=== PATIENT | male | born 1980 | race African-American/Black ===

== ENCOUNTER 2021-08-16 17:32 | Inpatient (IN) | payer OTHER, SELFPAY ==
[2021-08-16] VITALS (53 sets, daily range): BP systolic 48–119; BP diastolic 23–47; PULSE 66–81; RESP 14–31; TEMP 36.1–36.4; O2SAT 95–100; BMI 31.4
--- NOTE | ~2021-08-16 | CT_ITS ---
EXAMINATION: CT brain wo con DATE: 08/16/2021 23:07 INDICATION: Unresponsive TECHNIQUE: Computed tomography (CT) of the head was performed without intravenous contrast. Sagittal and coronal reconstructions were performed. The mA was adjusted according to patient size. Iterative reconstruction technique was employed. The dose-length product was 605.33 mGy-cm. COMPARISON: None FINDINGS: Evaluation mildly limited by some motion and streak artifact at the level of the skull base. Large le ft frontal temporal parietal craniotomy with plate and screw fixation. 3.4 x 3.5 x 3.4 similar partia lly calcified mass position at the left cerebral pontine angle exerts mass effect upon the anterior m argin of the left cerebellar hemisphere and left posterior margin of the inferior pontomedullary junc tion. No acute intracranial hemorrhage, acute infarction or abnormal extra axial fluid collection. Ve ntricles are normal and symmetric. Dependently layering fluid in the bilateral sphenoid sinuses and m ucosal thickening in a few of the bilateral ethmoid air cells. Bilateral otomastoiditis effusions. Th e orbits are normal. IMPRESSION: 1. No acute intracranial process. 2. 3.5 cm calcified mass at the left cerebral pontine angle suspicious for a meningioma. Patient has a prior large left frontal parietal temporal craniotomy suggesting patient likely has extensive prior imaging and would recommend correlation with prior imaging and surgical history. If noncontributory would recommend pre and postcontrast MRI for further evaluation. 3. Bilateral otomastoiditis effusions. 4. Dependently layering fluid in the bilateral sphenoid sinuses. Correlate clinically for acute sinus itis. Reviewed, dictated and finalized at location A. IMPRESSION: 1. No acute intracranial process. 2. 3.5 cm calcified mass at the left cerebral pontine angle suspicious for a me ningioma. Patient has a prior large left frontal parietal temporal craniotomy s uggesting patient likely has extensive prior imaging and would recommend correl ation with prior imaging and surgical history. If noncontributory would recomme nd pre and postcontrast MRI for further evaluation. 3. Bilateral otomastoiditis effusions. 4. Dependently layering fluid in the bilateral sphenoid sinuses. Correlate clin ically for acute sinusitis.
--- NOTE | ~2021-08-16 | CT_ITS ---
EXAMINATION: CT abdomen pelvis wo con DATE: 08/16/2021 23:06 INDICATION: Unresponsive. Sepsis. TECHNIQUE: Computed tomography (CT) of the abdomen and pelvis was performed without intravenous contr ast. Automated exposure control and iterative reconstruction technique were employed. The dose-length product was 1353.50 mGy-cm. COMPARISON: None FINDINGS: Dependent consolidation and patchy airspace opacities in the bilateral lower lobes which could repres ent aspiration or pneumonia. Heart size is normal. No pericardial or pleural effusion. Nasogastric tu be tip in proximal side port in the body of the stomach. Shrunken nodular cirrhotic liver. Gallbladde r is dilated to 4.7 cm in diameter at the fundus. Extensive dystrophic calcifications throughout the pancreas consistent with sequela of chronic pancreatitis. Normal spleen, bilateral adrenal glands and kidneys. There are large left splenorenal collaterals likely related to portal venous hypertension. There is edematous-appearing wall thickening throughout the colon consistent with pancolitis. Numerou s gas and fluid-filled mildly dilated loops of small bowel throughout the abdomen and pelvis without a clearly defined transition point to suggest obstruction. There does appear to be some wall thickeni ng in the distal ileum. Normal appendix. Moderate amount of ascites throughout the abdomen and pelvis . No free intraperitoneal gas. Bladder is decompressed around a Vega catheter. Chronic appearing mil d anterior wedging at T11 and T12. Large Schmorl's node along the superior endplate of L5. Diffuse reji dy wall edema. Embolization coils near the head of the pancreas extending towards the antrum of the s tomach. Right common femoral central venous catheter with distal tip at the proximal right common anthony ac vein. 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 IMPRESSION: 1. Consolidation and patchy airspace opacities in the dependent lower lobes which could represent asp iration and/or pneumonia. 2. Cirrhosis with prominent splenorenal collaterals consistent with portal venous hypertension. 3. Diffuse wall thickening throughout the colon and in the distal ileum consistent with pancolitis an d terminal ileitis which could be infectious, inflammatory or ischemic in etiology or potentially hep atic colopathy. 4. Multiple mildly dilated loops of small bowel throughout the abdomen and pelvis without discrete tr ansition point which could represent either an ileus or bowel obstruction at an indeterminate locatio n. 5. Extensive body wall edema and moderate amount of ascites likely related to liver disease. 6. Distended gallbladder without evident wall thickening which may be due to fasted state. There is c linical concern for acute cholecystitis could consider either ultrasound or HIDA scan. 7. 5.6 x 3.1 cm likely lipoma situated between the right gluteus medius and minimus muscle bellies. 8. Extensive dystrophic calcific lesions throughout the pancreas likely sequela of chronic pancreatit is. Reviewed, dictated and finalized at location A. IMPRESSION: 1. Consolidation and patchy airspace opacities in the dependent lower lobes whi ch could represent aspiration and/or pneumonia. 2. Cirrhosis with prominent splenorenal collaterals consistent with portal veno us hypertension. 3. Diffuse wall thickening throughout the colon and in the distal ileum consist ent with pancolitis and terminal ileitis which could be infectious, inflammator y or ischemic in etiology or potentially hepatic colopathy. 4. Multiple mildly dilated loops of small bowel throughout the abdomen and pelv is
--- NOTE | ~2021-08-16 | XR_ITS ---
EXAMINATION: XR chest 1V portable, XR abdomen NG/feed tube insert DATE: 08/16/2021 18:16 INDICATION: Status post cardiac arrest TECHNIQUE: 1. frontal view of the chest was obtained. 2. Single AP view of the abdomen was obtained. COMPARISON: None FINDINGS: Chest: Endotracheal tube tip 2.2 cm above the quang. Small lung volumes. Linear band of discoid atelectasis /scarring extending obliquely across the left midlung zone. No other airspace opacities, pulmonary ed livia, pleural effusion or pneumothorax. The cardiomediastinal silhouette is normal. Distal tip in proximal side port of a nasogastric tube project over the body of the stomach. There is prominent gaseous distention of the stomach. Multiple dystrophic calcifications extending across the central aspect of the upper abdomen likely throughout the pancreas related to chronic pancreatitis. Embolization coils in the right upper quadrant. There are some gas within a few loops of large and sm all bowel in the visualized lower abdomen. IMPRESSION: 1. Endotracheal tube and nasogastric tube in expected positions. 2. Small lung volumes with linear discoid atelectasis/scarring in the left midlung zone. 3. Dominant gaseous distention of the stomach which may be related to prior bag mask ventilation. Thi s may also account for the in increasing gas seen within nondilated loops of small bowel in the lower abdomen. 4. Numerous dystrophic pancreatic calcifications likely sequela of chronic pancreatitis. Reviewed, dictated and finalized at location A. IMPRESSION: 1. Endotracheal tube and nasogastric tube in expected positions. 2. Small lung volumes with linear discoid atelectasis/scarring in the left midl mt zone. 3. Dominant gaseous distention of the stomach which may be related to prior bag mask ventilation. This may also account for the in increasing gas seen within nondilated loops of small bowel in the lower abdomen. 4. Numerous dystrophic pancreatic calcifications likely sequela of chronic panc reatitis. IMPRESSION: 1. Endotracheal tube and nasogastric tube in expected positions. 2. Small lung volumes with linear discoid atelectasis/scarring in the left midl tm zone. 3. Dominant gaseous distention of the stomach which may be related to prior bag mask ventilation. This may also account for the in increasing gas seen within nondilated loops of small bowel in the lower abdomen. 4. Numerous dystrophic pancreatic calcifications likely sequela of chronic panc reatitis.
--- NOTE | 2021-08-16 17:47 | ECG_ITS ---
Measurements Intervals [place] Rate: 67 P: 75 TN: 118 QRS: 45 QRSD: 88 T: 64 QT: 500 QTc: 529 Interpretive Statements SINUS RHYTHM WITH SHORT TN INTERVAL PROLONGED QT INTERVAL, CONSIDER MEDICATION EFFECT NO PREVIOUS ECG AVAILABLE FOR COMPARISON Electronically Signed On 08-17-2021 13:37:55 CDT by Hanane Gurrola M.D.
[2021-08-16 17:48] LABS: Glucose Point of Care < 20 mg/dl (65-105)
[2021-08-16] MEDS: DEXTROSE 50% 25 GM/50 ML SYRINGE IV PUSH ×2 (17:49)
--- NOTE | 2021-08-16 17:49 | PC.NURSE ---
Pt bedside blood glucose 12. 2 amps d50 given per verbal order.
--- NOTE | 2021-08-16 18:00 | PC.NURSE ---
EDP to bedside to remove LMA and intubate pt with ET tube. RT at bedside. LMA removed and large amount of blood suctioned from airway. Pt intubated with 7.5mm ET tube, 25cm to the lips and secured per protocol. Bilateral breath sounds auscultated and positive color changed noted on C02 detector. OG placed per verbal order 60cm to the lip and large amount of blood suctions from stomach.
[2021-08-16 18:09] LABS: Basophils Percent Auto 0.5 % (0.2-1.2); Eosinophils Percent Auto 0.7 % (0-4.4); Immature Granulocyte Percent A 3.4 % (0-0.5); Immature Platelet Fraction Pct 8.9 % (0.9-11.2); Lymphocytes Absolute Auto 2.05 K/mm3 (0.9-3.2); Lymphocytes Percent Auto 34.5 % (18.3-44.2); Mean Corpuscular HGB Conc 33.2 g/dl (32-36); Mean Corpuscular Hemoglobin 33.7 pg (26-34); Mean Corpuscular Volume 101.5 fl (80-100); Monocytes Absolute Auto 0.6 K/mm3 (0.1-0.6); Monocytes Percent Auto 9.9 % (2.6-8.5); Nucleated Red Blood Cells Absolute Auto 0.1 K/mm3 (0.0-0.012); Nucleated Red Blood Cells Perc 1.5 % (0.0-0.2); Red Blood Count 1.99 M/mm3 (4.6-6.20); Red Cell Distribution Width 25.3 % (11.5-14.5); White Blood Count 5.9 K/mm3 (4.5-10.0)
[2021-08-16 18:17] LABS: Partial Thromboplastin Time 100.2 SECONDS (22.3-36.8)
--- NOTE | 2021-08-16 18:21 | ED.CPR ---
HPI - CPR General Chief Complaint: Cardiac Arrest/CPR Stated Complaint: post cardiac arrest Source: family and EMS Mode of arrival: EMS Limitations: clinical condition History of Present Illness HPI narrative: Patient is 40 years old -[place] male came from custodial by ambulance because of cardiopulmonary arrest. History of HIV, liver cirrhosis secondary to alcoholism, end-stage liver disease, comfort measures only, hospice. Patient was discharged from [facility] today to go back to custodial for hospice. All his medication was stopped few days ago, no blood work-up done on him for a while, once patient arrived to the custodial, coded, requested to do everything and cancel the comfort measures only status. Dr. Huang, [facility] who discharge patient to custodial, telling me that the and the mother were on board yesterday for the patient to be comfort measures/hospice. And all his medication was stopped few days ago, and no blood work-up done on him for a while. Patient was admitted to [facility] for hematemesis secondary to esophageal varices, liver cirrhosis. EMT arrived to the custodial at 5 PM, VMarcus fib, shocked 1, epinephrine x3, currently patient sinus tachycardia. IO left tibia, Course Course Emergency Course: Patient's mother and sister who are at the bedside would like to continue patient's CODE STATUS of comfort measures only and hospice. And he was not happy about intubation and medical intervention. I did phone patient's 3 times, ( did not come to see her ) who insisted to do everything and to not let him suddenly and to donate his body to [facility] . She requested to treat any medical condition and to do any invasive procedure to keep him alive Consultations Consultation #1: DR HUANG, [facility] Patient was intubated on August 08 to protect airway because of hematemesis, was extubated on August 13 because of CODE STATUS changed to comfort measures only/hospice. Patient did not receive any of his medication since August 13. Patient was discharged to custodial for hospice today. The family including the mother and are on board and aware of the comfort measures only, hospice status. Date: 08/16/21 Time: 18:34 Consultation #2: DR HORTON, ICU at [facility] Report that patient was under conservative measures only while was at [facility], and is not a liver transplant candidate, and was placed on comfort measures only and the hospice because nothing else could be done for him. He declined to take patient back to [place] ICU because they would not offer anything more than conservative measures which can be done in our ICU at [facility] Date: 08/16/21 Time: 22:09 Consultation #3: Dr. Prado, accepted patient admission to ICU Dr. Breaux, inspector and sorter asked patient consult for alcoholic liver cirrhosis and possible esophageal varices Dr. HILL, our hospitalist who accepted patient admission. Date: 08/16/21 Time: 22:10 Vital Signs Vital signs: Vital Signs Pulse Rate 66 08/16/21 17:33 Respiratory Rate 20 08/16/21 17:33 Blood Pressure 96/41 L 08/16/21 17:33 Pulse Oximetry 98 08/16/21 17:33 Pulse Rate 66 08/16/21 17:33 Respiratory Rate 20 08/16/21 17:33 Blood Pressure 96/41 L 08/16/21 17:33 Pulse Oximetry 98 08/16/21 17:33 Procedures Central Line Placement Right Femoral: Performed Emergently - Given emergent patient condition, temporal constraints may have precluded informed consent.: Yes Time Out Performed: Yes (30) Patient Placed on Monitor/Pulse Ox: Yes Max. Sterile Barrier Technique: Caps, large sterile sheet and hand hygiene Central Line Prep: 2% chlorhexidine scrub and sterile drapes applied Technique: sterile prep/drape Local Anesthetic: none Ultrasound Used for Placement: No Central Line Lumen Inserted: triple Post Procedure: sutu
[2021-08-16 18:27] LABS: Alanine Aminotransferase 41 U/L (4-50); Albumin Level 2.8 g/dL (3.5-5.1); Alkaline Phosphatase 99 U/L (38-126); Anion Gap 18 mmol/L (8-16); Aspartate Amino Transferase 150 U/L (17-59); Bilirubin,Total 38.2 mg/dL (0.2-1.3); Blood Urea Nitrogen 51 mg/dL (9-20); Calcium 7.2 mg/dL (8.4-10.2); Carbon Dioxide 12 mmol/L (22-30); Chloride 112 mmol/L (98-107); Estimated CRCL calculation 19 ml/min; Estimated Glomerular Filt Rate 14; Glucose < 30 mg/dL (65-110); Potassium 5.4 mmol/L (3.4-5.0); Sodium 142 mmol/L (137-145)
[2021-08-16 18:30] LABS: Hemoglobin 6.7 g/dL (14.0-18.0)
[2021-08-16 18:31] LABS: Hematocrit 20.2 % (42.0-52.0); Platelet Count Result 18 k/mm3 (150-375)
[2021-08-16 18:35] LABS: Burr Cells 1+ (NORMAL); Ovalocytes 1+ (NORMAL); Platelet Estimate Decreased (Adequate); Troponin I 0.067 ng/mL (0.000-0.034)
[2021-08-16 18:36] LABS: Schistocytes 1+ (NORMAL)
[2021-08-16 18:39] LABS: Glucose Point of Care 169 mg/dl (65-105)
[2021-08-16 18:39] LABS: Glucose Point of Care 135 mg/dl (65-105)
[2021-08-16 18:45] LABS: Alveolar/Arterial O2 Gradient 506.7 mmHg; Base Excess ABG -19.9 mEq/l (+/-2.0); Carboxyhemoglobin 2.3 % THb (0-2.0); Fractional Inspired Oxygen 100 %; HCO3 ABG 6.5 mEq/l (22.0-26.0); Methemoglobin ABG 1.5 %THb (0-1.5); Oxygen Content ABG 4.8 %vol (16.0-22.0); Oxyhemoglobin 93.7 % THb (90.0-100.0); PO2 FiO2 Ratio Arterial Blood 1.89 %; Reduced Hemoglobin 2.5 %THb (0-5.0)
--- NOTE | 2021-08-16 18:45 | PC.NURSE ---
2nd liter NS started
[2021-08-16 18:46] LABS: pH ABG 7.192 (7.350-7.450)
[2021-08-16 18:47] LABS: Arterial Blood Gas Vent Mode CMV; Arterial Blood Gas Ventilator rate 20 /MIN; Device VENTILATOR; Modified Allen's Test Pass; PCO2 ABG 17.3 mmHg (35.0-45.0); Site Drawn LEFT RADIAL; Total Hemoglobin 3.2 g/dL (12.0-18.0)
[2021-08-16 18:48] LABS: Arterial Blood Gas PEEP 5 cmH2O; Arterial Blood Gas Tidal Volume 450 ml
[2021-08-16 18:55] LABS: CRP 3.9 mg/dL (<1.0); Lactic Acid Reflex 8.1 mmol/L (0.7-2.0)
[2021-08-16 19:00] LABS: Prothrombin Time 57.5 Seconds (11.1-14.7)
--- NOTE | 2021-08-16 19:00 | PC.NURSE ---
Right groin central line placed by Dr. Nguyen.
[2021-08-16 19:09] LABS: INR 6.9
--- NOTE | 2021-08-16 19:16 | PC.NURSE ---
2nd liter of NS infused. 3rd Liter of NS started.
[2021-08-16] MEDS: NOREPINEPHRINE 8 MG/D5W 250 ML 8 MG/250 ML BAG 9.38 MG IV CONT (19:36)
--- NOTE | 2021-08-16 19:45 | PC.NURSE ---
Pt requiring frequent suction due to blood in mouth and nose. Pt also had large dark liquid stool. Pt cleaned up and open pressure injury noted on coccyx. ABD pad placed.
[2021-08-16] MEDS: TUBING, BLOOD PLUM PUMP TUBING 2 EACH XX (19:49)
[2021-08-16] MEDS: PHYTONADIONE ADULT INJ 10 MG in DEXTROSE 5% IN WATER 50 ML 100 MG IVPB (21:00)
[2021-08-16 21:10] LABS: Alveolar/Arterial O2 Gradient 410.5 mmHg; Base Excess ABG -16.3 mEq/l (+/-2.0); Fractional Inspired Oxygen 90 %; HCO3 ABG 8.4 mEq/l (22.0-26.0); Oxygen Content ABG 11.3 %vol (16.0-22.0); Oxygen Saturation ABG 99.4 % (95.0-100.0); Oxyhemoglobin 96.6 % THb (90.0-100.0); PO2 ABG 213.1 mmHg (80.0-100.0); PO2 FiO2 Ratio Arterial Blood 2.37 %
[2021-08-16 21:13] LABS: pH ABG 7.296 (7.350-7.450)
[2021-08-16 21:14] LABS: PCO2 ABG 17.7 mmHg (35.0-45.0)
[2021-08-16 21:16] LABS: Device VENTILATOR; Modified Allen's Test Unable to perform; Site Drawn LEFT RADIAL; Total Hemoglobin 7.9 g/dL (12.0-18.0)
[2021-08-16 21:17] LABS: Arterial Blood Gas PEEP 5 cmH2O; Arterial Blood Gas Tidal Volume 450 ml; Arterial Blood Gas Vent Mode CMV; Arterial Blood Gas Ventilator rate 20 /MIN
[2021-08-16 21:32] LABS: Glucose Point of Care 102 mg/dl (65-105)
[2021-08-16 21:41] LABS: Reflex Lactic Acid Yes or No Add Lactic
--- NOTE | 2021-08-16 23:05 | ADMGEN ---
This patient, Elpidio Evangelista, was admitted to Intensive Care Unit-5. Patient/family oriented to hospital policies and general routines including ID bracelet, bed and alarms, visiting hours, pain management, procedures, bathroom and other care routines, personal items, smoking policy, room service/diet, and visiting hours. Information on how to activate the Rapid Response Team has been discussed. Patient/Family are encouraged to report perceived risks to care and to ask questions if they do not understand what they are told or what they should do.
--- NOTE | 2021-08-16 23:20 | PC.NURSE ---
Unable to detect blood presser. Levophed increased. Palpable pulse.
[2021-08-16] MEDS: SODIUM BICARBONATE 8.4% 50 MEQ/50 ML SYRINGE 100 MEQ IV PUSH (23:42)
[2021-08-16 23:48] LABS: Hematocrit 23.2 % (42.0-52.0); Hemoglobin 7.7 g/dL (14.0-18.0)
[2021-08-16] MEDS: VASOPRESSIN INJ 100 UNITS in DEXTROSE 5% 95 ML IV CONT (23:52)
[2021-08-16] MEDS: MIDAZOLAM 100MG/NS 100ML(*CRX) 100 MG/100 ML BAG IV CONT (23:55)
[2021-08-16 23:59] LABS: Prothrombin Time 56.9 Seconds (11.1-14.7)
[2021-08-17] VITALS (58 sets, daily range): BP systolic 62–133; BP diastolic 32–97; PULSE 78–90; RESP 20–29; TEMP 32.7–33.4; O2SAT 86–98
[2021-08-17 00:01] LABS: Partial Thromboplastin Time 96.7 SECONDS (22.3-36.8)
[2021-08-17] MEDS: EPINEPHrine INJ 1 MG in DEXTROSE 5% IN WATER 250 ML 15.06 MG IV CONT (00:01)
[2021-08-17 00:08] LABS: INR 6.8
--- NOTE | 2021-08-17 00:15 | PM.IMHP ---
H&P: HPI History of Present Illness Date/Time: 08/17/21 00:15 Chief Complaint: Cardiac arrest. Narrative: This is a 40-year-old male with past medical history significant for HIV, end-stage liver disease, hepatic cirrhosis, alcohol abuse, patient according to medical records had been discharged to group home on comfort care measures only and hospice however according to emergency room doctor patient had been several days under this with no medications and comfort care measures only patient went into cardiac arrest EMS was called after reverted the comfort care measures only and hospice status for the patient now wants everything to be done. According to records EMS arrived and he was on ventricular fibrillation was shocked receive epinephrine ROSC was achieved then he was brought to our emergency room. Patient is currently on life support and admitted to intensive care unit. Review of Systems Review of Systems: ROS unobtainable: Yes unobtainable due to medical condition (Comatose is on life support.) Meds Vital Signs Vital Signs - 24 hr 08/16/21 17:33 08/16/21 17:40 08/16/21 18:25 Temperature Pulse Rate 66 67 66 Respiratory Rate 20 Blood Pressure 96/41 L 73/31 L Pulse Oximetry 98 100 99 08/16/21 18:35 08/16/21 18:40 08/16/21 18:45 Temperature Pulse Rate 76 76 74 Respiratory Rate 16 25 H 22 H Blood Pressure 58/26 L 58/26 L Pulse Oximetry 99 100 08/16/21 18:46 08/16/21 18:51 08/16/21 18:59 Temperature Pulse Rate 74 71 70 Respiratory Rate 20 20 15 Blood Pressure 61/33 L 62/26 L 61/24 L Pulse Oximetry 100 100 100 08/16/21 19:00 08/16/21 19:01 08/16/21 19:06 Temperature Pulse Rate 71 70 70 Respiratory Rate 17 15 23 H Blood Pressure 57/25 L 62/24 L Pulse Oximetry 100 100 08/16/21 19:11 08/16/21 19:15 08/16/21 19:16 Temperature Pulse Rate 69 68 68 Respiratory Rate 23 H 20 23 H Blood Pressure 52/34 L 58/26 L Pulse Oximetry 100 99 100 08/16/21 19:21 08/16/21 19:26 08/16/21 19:30 Temperature 97.6 F Pulse Rate 68 67 66 Respiratory Rate 17 21 H 21 H Blood Pressure 58/27 L 48/28 L 61/23 L Pulse Oximetry 100 100 100 08/16/21 19:36 08/16/21 19:41 08/16/21 19:42 Temperature Pulse Rate 67 69 69 Respiratory Rate 24 H 17 26 H Blood Pressure 61/23 L 66/34 L Pulse Oximetry 100 99 100 08/16/21 19:45 08/16/21 19:50 08/16/21 20:00 Temperature Pulse Rate 71 68 74 Respiratory Rate 15 16 Blood Pressure Pulse Oximetry 100 100 100 08/16/21 20:10 08/16/21 20:15 08/16/21 20:16 Temperature 97 F L Pulse Rate 69 68 75 Respiratory Rate 14 16 15 Blood Pressure 77/47 L 82/33 L Pulse Oximetry 100 96 98 08/16/21 20:21 08/16/21 20:26 08/16/21 20:30 Temperature Pulse Rate 69 69 67 Respiratory Rate 15 15 18 Blood Pressure 84/44 L 90/34 L Pulse Oximetry 100 99 08/16/21 20:31 08/16/21 20:36 08/16/21 20:41 Temperature Pulse Rate 68 70 68 Respiratory Rate 16 16 16 Blood Pressure 89/40 L 95/39 L 96/40 L Pulse Oximetry 100 08/16/21 20:45 08/16/21 20:46 08/16/21 20:51 Temperature Pulse Rate 68 69 69 Respiratory Rate 15 15 16 Blood Pressure 95/45 L 92/40 L Pulse Oximetry 100 100 100 08/16/21 20:56 08/16/21 21:00 08/16/21 21:01 Temperature Pulse Rate 67 70 77 Respiratory Rate 14 16 17 Blood Pressure 95/46 L 75/43 L Pulse Oximetry 100 100 08/16/21 21:06 08/16/21 21:11 08/16/21 21:15 Temperature Pulse Rate 70 70 71 Respiratory Rate 17 15 17 Blood Pressure 91/41 L 92/43 L Pulse Oximetry 100 100 100 08/16/21 21:16 08/16/21 21:21 08/16/21 21:22 Temperature Pulse Rate 70 70 69 Respiratory Rate 18 16 Blood Pressure 91/39 L 86/46 L Pulse Oximetry 100 100 100 08/16/21 22:55 08/16/21 23:08 08/16/21 23:19 Temperature Pulse Rate 74 75 80 Respiratory Rate 22 H Blood Pressure 85/38 L Pulse Oximetry 95 100 08/16/21 23:22 08/16/21 23:28 08/16/21 23:52 Temperature Pulse Rate 74 81
[2021-08-17] MEDS: SODIUM BICARBONATE 8.4% 150 MEQ in WATER, STERILE FOR INJECTION 950 ML 100 MEQ IV CONT (00:24)
[2021-08-17] MEDS: ETOMIDATE 20 MG/10 ML AMPUL 15 MG IV PUSH (00:42)
[2021-08-17 00:52] LABS: Glucose Point of Care 95 mg/dl (65-105)
[2021-08-17 00:56] LABS: Lactic Acid 8.8 mmol/L (0.7-2.0); Troponin I 0.105 ng/mL (0.000-0.034)
[2021-08-17] MEDS: PHYTONADIONE ADULT INJ 10 MG in DEXTROSE 5% IN WATER 50 ML 100 MG IVPB (01:10)
[2021-08-17] MEDS: NOREPINEPHRINE 8 MG/D5W 250 ML 8 MG/250 ML BAG 93.75 MG IV CONT ×2 (01:30→07:52)
--- NOTE | 2021-08-17 02:24 | PC.NURSE ---
Call placed to Do Evangelista for blood transfusion consent and admit information. No answer, message left asking to call back NOMAN with ICU phone number.
--- NOTE | 2021-08-17 02:43 | PC.NURSE ---
01:30 Patient's left radial puncture site oozing. Pressure bandage applied. Bleeding ceased at this time. Patient's Right radial puncture site spraying blooding. Pressure applied manually for 35-40 minutes. Site still spraying blood. Pressure bandage applied per hospitalist. Bleeding ceased at this time. Will continue to monitor.
--- NOTE | 2021-08-17 03:10 | PC.NURSE ---
Upon arrival to ICU, vasopressors were titrated per hospitalist due to patient's rapidly deteriorating condition. Once stabilized, vasopressors were titrated per protocol in JUN.
[2021-08-17] MEDS: NOREPINEPHRINE 8 MG/D5W 250 ML 8 MG/250 ML BAG 75 MG IV CONT (04:55)
[2021-08-17 04:59] LABS: Basophils Absolute Auto 0.1 K/mm3 (0.0-0.1); Basophils Percent Auto 0.6 % (0.2-1.2); Eosinophils Percent Auto 0.4 % (0-4.4); Immature Granulocyte Absolute 0.23 K/mm3 (0.00-0.031); Immature Granulocyte Percent A 2.4 % (0-0.5); Lymphocytes Percent Auto 7.4 % (18.3-44.2); Mean Corpuscular HGB Conc 33.3 g/dl (32-36); Mean Corpuscular Hemoglobin 33.1 pg (26-34); Mean Corpuscular Volume 99.4 fl (80-100); Mean Platelet Volume 12.8 fl (7.4-10.4); Monocytes Absolute Auto 0.7 K/mm3 (0.1-0.6); Monocytes Percent Auto 6.9 % (2.6-8.5); Neutrophils Absolute Auto 7.7 K/mm3 (1.3-6.7); Neutrophils Percent Auto 82.3 % (45.5-73.1); Nucleated Red Blood Cells Perc 0.3 % (0.0-0.2); Red Blood Count 1.66 M/mm3 (4.6-6.20); Red Cell Distribution Width 21.2 % (11.5-14.5); White Blood Count 9.4 K/mm3 (4.5-10.0)
[2021-08-17] MEDS: SODIUM CHLORIDE 0.9% IV 250 ML 30 ML (05:02)
--- NOTE | 2021-08-17 05:03 | PC.NURSE ---
[facility] Evangelista called again for update and to get admit information. No answer, message with call back number left on phone.
[2021-08-17 05:24] LABS: Platelet Count Result 25 k/mm3 (150-375)
[2021-08-17 05:26] LABS: Hematocrit 16.5 % (42.0-52.0); Hemoglobin 5.5 g/dL (14.0-18.0)
[2021-08-17 05:27] LABS: Alanine Aminotransferase 134 U/L (4-50); Albumin Level 2.5 g/dL (3.5-5.1); Alkaline Phosphatase 83 U/L (38-126); Anion Gap 24 mmol/L (8-16); Aspartate Amino Transferase 533 U/L (17-59); Bilirubin,Total 33.1 mg/dL (0.2-1.3); Blood Urea Nitrogen 45 mg/dL (9-20); Calcium 6.3 mg/dL (8.4-10.2); Carbon Dioxide 8 mmol/L (22-30); Chloride 107 mmol/L (98-107); Estimated CRCL calculation 20 ml/min; Estimated Glomerular Filt Rate 15; Glucose 241 mg/dL (65-110); Potassium 4.7 mmol/L (3.4-5.0); Sodium 139 mmol/L (137-145)
[2021-08-17 05:32] LABS: Anisocytosis 3+ (NORMAL); Platelet Estimate Decreased (Adequate)
[2021-08-17 05:33] LABS: Burr Cells 2+ (NORMAL)
--- NOTE | 2021-08-17 05:40 | PC.NURSE ---
Patient has had 900mLs of blood suctioned from mouth since arrival to ICU.
[2021-08-17] MEDS: EPINEPHrine INJ 1 MG in DEXTROSE 5% IN WATER 250 ML 105.42 MG IV CONT (05:45)
[2021-08-17] MEDS: SODIUM CHLORIDE 0.9% IV 250 ML 30 ML IV CONT (05:54)
--- NOTE | 2021-08-17 08:30 | WPDGICN ---
Assessment and Plan Assessment and plan (1) Septic shock: Code(s): A41.9 - Sepsis, unspecified organism; R65.21 - Severe sepsis with septic shock Status: Acute Assessment and Plan: presented after cardiac arrest and he is doing poorly despite maximal medical therapy (2) GI bleeding: Code(s): K92.2 - Gastrointestinal hemorrhage, unspecified Status: Acute Assessment and Plan: s/p blood products he has decompensated cirrhosis with coagulopathy and worsening renal failure, probably DIC prognosis is poor (3) Cardiac arrest: Code(s): I46.9 - Cardiac arrest, cause unspecified Status: Acute Assessment and Plan: s/p CPR doing poorly family decided comfort measures (4) Respiratory failure with hypoxia: Code(s): J96.91 - Respiratory failure, unspecified with hypoxia Status: Acute (5) Liver failure: Code(s): K72.90 - Hepatic failure, unspecified without coma Status: Acute (6) Cirrhosis of liver: Qualifiers: Ascites presence: with ascites Hepatic cirrhosis type: unspecified hepatic cirrhosis Qualified Code(s): K74.60 - Unspecified cirrhosis of liver; R18.8 - Other ascites Code(s): K74.60 - Unspecified cirrhosis of liver Status: Acute (7) HIV (human immunodeficiency virus infection): Code(s): B20 - Human immunodeficiency virus [HIV] disease Status: Acute (8) Renal failure: Code(s): N19 - Unspecified kidney failure Status: Acute Assessment and Plan: worsening renal failure (9) Coagulopathy: Code(s): D68.9 - Coagulation defect, unspecified Status: Acute Assessment and Plan: s/p ffp and vit K (10) Acute blood loss anemia: Code(s): D62 - Acute posthemorrhagic anemia Status: Acute Assessment and Plan: s/p blood transfusion received medical therapy, iv protonix GI Consult Note Consult date/time: 08/17/21 08:30 HPI: Elpidio Evangelista is a 40 year old male with past medical history significant for HIV, end-stage liver disease, hepatic cirrhosis, alcohol abuse who was recently extubated and placed on comfort care at [facility] and was discharged with hospice care to [facility]. History is obtained from records. He was found to be on cardiac arrest and based on history the wanted to continue medical care again, EMS was called, CPR was initiated and epinephrine was given after 2 rounds of CPR patient went into VFib and was defibrillated. Then he was transported to ER and admitted to ICU. He is on septic shock, cardiorespiratory arrest and intubated. Also had GIB with coagulopathy and liver failure, received blood products and inotropics. Patient is doing poorly with persistent hypotension, unresponsive. [place] talked to family and will be back to comfort measures again with plan to extubate. Review of Systems Review of Systems: ROS unobtainable: Yes unobtainable due to endotracheal tube and unobtainable due to mental status PMF Past Medical History Medical History (Updated 08/17/21 @ 10:10 by Davon Finley MD) Acute blood loss anemia Liver failure Septic shock Meds Home Medications and Allergies Home Medications Medication Instructions Recorded Confirmed Type No Home Medications 08/17/21 08/17/21 History Vital Signs Vital Signs - 24 hr 08/16/21 17:33 08/16/21 17:40 08/16/21 18:25 Temperature Pulse Rate 66 67 66 Respiratory Rate 20 Blood Pressure 96/41 L 73/31 L Pulse Oximetry 98 100 99 08/16/21 18:35 08/16/21 18:40 08/16/21 18:45 Temperature Pulse Rate 76 76 74 Respiratory Rate 16 25 H 22 H Blood Pressure 58/26 L 58/26 L Pulse Oximetry 99 100 08/16/21 18:46 08/16/21 18:51 08/16/21 18:59 Temperature Pulse Rate 74 71 70 Respiratory Rate 20 20 15 Blood Pressure 61/33 L 62/26 L 61/24 L Pulse Oximetry 100 100 100 08/16/21 19:00 08/16/21 19:01 08/16/21 19:06 Temperature
[2021-08-17] MEDS: EPINEPHrine INJ 1 MG in DEXTROSE 5% IN WATER 250 ML 135.54 MG IV CONT (09:00)
--- NOTE | 2021-08-17 09:12 | WPDCNINT ---
Assessment and Plan Assessment and plan (1) Renal failure: Code(s): N19 - Unspecified kidney failure Status: Acute (2) Respiratory failure with hypoxia: Code(s): J96.91 - Respiratory failure, unspecified with hypoxia Status: Acute (3) Cardiac arrest: Code(s): I46.9 - Cardiac arrest, cause unspecified Status: Acute (4) Shock: Code(s): R57.9 - Shock, unspecified Status: Acute (5) Sepsis: Qualifiers: Sepsis acute organ dysfunction status: with acute organ dysfunction Sepsis type: sepsis due to unspecified organism Severe sepsis acute organ dysfunction type: unspecified Severe sepsis shock status: unspecified Qualified Code(s): A41.9 - Sepsis, unspecified organism; R65.20 - Severe sepsis without septic shock Code(s): A41.9 - Sepsis, unspecified organism Status: Acute (6) Cirrhosis of liver: Qualifiers: Ascites presence: with ascites Hepatic cirrhosis type: unspecified hepatic cirrhosis Qualified Code(s): K74.60 - Unspecified cirrhosis of liver; R18.8 - Other ascites Code(s): K74.60 - Unspecified cirrhosis of liver Status: Acute (7) Coagulopathy: Code(s): D68.9 - Coagulation defect, unspecified Status: Acute (8) Thrombocytopenia: Code(s): D69.6 - Thrombocytopenia, unspecified Status: Acute (9) Anemia: Qualifiers: Anemia type: unspecified type Qualified Code(s): D64.9 - Anemia, unspecified Code(s): D64.9 - Anemia, unspecified Status: Acute (10) GI bleeding: Code(s): K92.2 - Gastrointestinal hemorrhage, unspecified Status: Acute (11) HIV (human immunodeficiency virus infection): Code(s): B20 - Human immunodeficiency virus [HIV] disease Status: Acute Additional Plan I reviewed patient's chart labs and imaging. I examined patient. I had formulated the plan for today including transfusion of additional platelets, checking coags and CBC after current transfusion to decide for further transfusion of blood products, check ABG start Protonix and octreotide infusions for GI bleeding. GI has already been consult. Check ammonia CK. Continue vasopressors IV fluid and add albumin I reviewed his chest x-ray and CT scan of abdomen pelvis and head pain I spoke to patient's and discussed patient's current status and goals of care. Since last night she appears to have realized the gravity of the situation and patient's wishes. She told me the patient would not want all of this done at this time considering his prognosis and the fact that he was already on comfort/hospice care. She expressed her dissatisfaction with care he received at [facility] but did confirmed the plan of comfort care and hospice at the time of discharge. She states that she wants him to be pain-free and comfortable. She states that she is aware that he will pass away soon. She requested that I do not contact his mom or sister as she does not want them involved. She requested the patient body be donated to [facility] for research purposes as per his wishes. She states that she has seen him multiple times in the hospital and does not want to see him again in this condition. I reiterated the process of comfort care which would include taking patient off the ventilator and discontinuing all aggressive medical therapy and monitoring which will lead to patient's . She verbalized understanding and agreed to proceed with plan. She states the patient has suffered too much and she is going to pray for him and wants him to 'go to [place] in peace' she requested us to pray for him and stated that she is a gnosticist person and was going to pray for him. She requested to be notified once patient passes away. As per patient's 's request and consistent with patient's past goals of care which included patient being discharged on hospice from [facility] yesterday, I will discontinue all medic
[2021-08-17] MEDS: MORPHINE SULFATE INJ (*CRX) 10 MG/ML AMP 5 MG IV PUSH (09:25)
[2021-08-17] MEDS: LORazepam INJ (*CRX) 2 MG/ML VIAL IV PUSH (09:25)
--- NOTE | 2021-08-17 10:03 | PC.NURSE ---
Spoke with Kalyan at [facility] at 0950, patient not a candidate for donation.
--- NOTE | 2021-08-17 10:18 | PC.NURSE ---
Pt medicated with IV Ativan and IV Morphine, as ordered, prior to terminal extubation. All gtts turned off at 0929. Pt extubated by respiratory therapist at 0934. Cessation of pulse and respirations at 0945. Patient's has been notified of .
--- NOTE | 2021-08-17 10:21 | PC.NURSE ---
Called coroners office, spoke with Antonieta. Patient is released to go to home. Not a supervisor post wave case. Will call back when family chooses home.
--- NOTE | 2021-08-17 10:29 | PC.NURSE ---
Patient spouse, Gonsalo Evangelista, notified that patient at 0945. She will call back with home to be notified. Dr. Simpson notified of patient expiration. Dr. Finley notified of expiration.
--- NOTE | 2021-08-17 11:52 | PC.NURSE ---
Patient transported [place] [facility] [place]. Officer [facility] notified that patient is ready for transport.
--- NOTE | 2021-08-19 11:03 | PM.DDS ---
Discharge Summary Date and Time Date of : 08/17/21 Time of : 09:45 Provider Pronounced By: Vane Nunez RN Probable Cause of Probable Cause of : Multiorgan failure, Sepsis, shock, cardiac arrest, HIV, acute renal failure, liver cirrhosis, coagulopathy, thrombocytopenia, upper GI bleed, anemia Summary Hospital Course: 40 year old male with past medical history significant for HIV, end-stage liver disease, hepatic cirrhosis, alcohol abuse who was recently extubated and placed on comfort care at [facility] and was discharged on the same day with hospice care to assisted was brought back to [facility] ER after a cardiac arrest. Patient was comfort measures only and discharged for hospice care to assisted but once he arrived he had no pulse and CPR was initiated by assisted staff. EMS was called. EMS did verify patient's code status but then called patient's who requested them to resuscitate him and take him to the hospital. Patient was in asystole. CPR was initiated and epinephrine was given after 2 rounds of CPR patient went into VFib and was defibrillated. Patient was then brought to [facility]. Patient was found to be having upper GI bleed, shock, pneumonia, coagulopathy, anemia, renal failure and was unresponsive. Patient at baseline has cirrhosis and HIV. Overnight patient was given blood products including 4 units of PRBC 3 units of FFP vitamin K and 2 units of platelets. Was started on multiple vasopressors and worse infusion for sedation. Patient temperature was already at 92? F. initially in ER [facility] Hospital was contacted for transfer back to [facility] but they refused to accept the patient stating that they do not think that they would be able to add anything to patient's care considering his prognosis.. Next morning when I saw the patient he continues to have GI bleeding and bleeding from oral mucosa oozing from other site. He is on 3 vasopressors IV fluids with bicarb, ventilator and unresponsive. I reviewed patient's chart labs and imaging. I examined patient. I had formulated the plan for today including transfusion of additional platelets, checking coags and CBC after current transfusion to decide for further transfusion of blood products, check ABG start Protonix and octreotide infusions for GI bleeding. GI has already been consult. Check ammonia CK. Continue vasopressors IV fluid and add albumin I reviewed his chest x-ray and CT scan of abdomen pelvis and head pain I spoke to patient's and discussed patient's current status and goals of care. Since last night she appears to have realized the gravity of the situation and patient's wishes. She told me the patient would not want all of this done at this time considering his prognosis and the fact that he was already on comfort/hospice care. She expressed her dissatisfaction with care he received at [facility] but did confirmed the plan of comfort care and hospice at the time of discharge. She states that she wants him to be pain-free and comfortable. She told me that she is aware that he will pass away soon. She requested that I do not contact his mom or sister as she does not want them involved. She requested the patient body be donated to [facility] for research purposes as per his wishes. She told me that she has seen him multiple times in the hospital and does not want to see him again in this condition. I reiterated the process of comfort care which would include taking patient off the ventilator and discontinuing all aggressive medical therapy and monitoring which will lead to patient's . She verbalized understanding and agreed to proceed with plan. She told me that the patient has suffered too much and she is going to pray for him and wants him to '[facility]' she requested us to pray for him and stated that she is a rastafari person and was going to pray for him. She requested to be notif
== END 2021-08-17 09:45 | disposition expired | DRG 196 ==
LOC: ANHED 22:03 → ANHICU 23:14
PROVIDERS: Admitting Provider Internal Medicine; Emergency Provider Emergency Medicine; Visit Provider Internal Medicine
DX: I49.01 Ventricular fibrillation (principal); J96.91 Respiratory failure, unspecified with hypoxia; R65.21 Severe sepsis with septic shock; A41.9 Sepsis, unspecified organism; J18.9 Pneumonia, unspecified organism; K92.2 Gastrointestinal hemorrhage, unspecified; D62 Acute posthemorrhagic anemia; D68.9 Coagulation defect, unspecified; N17.9 Acute kidney failure, unspecified; I46.9 Cardiac arrest, cause unspecified; Z51.5 Encounter for palliative care; E80.6 Other disorders of bilirubin metabolism; Z21 Asymptomatic human immunodeficiency virus [HIV] infection status; K70.31 Alcoholic cirrhosis of liver with ascites; D63.8 Anemia in other chronic diseases classified elsewhere; F10.10 Alcohol abuse, uncomplicated; N18.9 Chronic kidney disease, unspecified; K72.10 Chronic hepatic failure without coma; D69.6 Thrombocytopenia, unspecified
CPT/HCPCS: 31500; 36415; 36430; 36556; 36600; 70450; 71045; 74176; 80053; 82375; 82805; 82948; 83050; 83605; 84484; 85014; 85018; 85025; 85055; 85610; 85730; 86140; 86850; 86900; 86901; 86920; 87040; 87077; 87186; 92950; 93005; 96361; 96365; 96366; 96375; 99291; A9270; C1751; J0171; J1956; J2060; J2250; J2270; J2543; J3370; J3430; J7030; J7050; J7060; P9016; P9017; P9034